=== PATIENT | female | born 1935 | race Caucasian/White ===

== ENCOUNTER 2016-12-18 14:54 | Emergency (ER) | payer MEDICARE, OTHER ==
[~2016-12-18] VITALS: Ht 154.9 cm; Wt 72.6 kg
[2016-12-18] MEDS ORDERED: ASPIRIN CHEWABL81 MG PO (14:59)
[2016-12-18] MEDS ORDERED: TRIAMTERENE-HC1 EACH PO (15:03)
[2016-12-18] MEDS ORDERED: AMLODIPINE BESYL5 MG PO (15:03)
[2016-12-18] MEDS ORDERED: LOSARTAN POTAS100 M1 PO (15:03)
[2016-12-18] MEDS ORDERED: K-TAB10 MEQ PO (15:04)
[2016-12-18] MEDS ORDERED: VITAMIN D31000 UNI1 PO (15:04)
[2016-12-18] MEDS ORDERED: VITAMIN E400 UNI3 PO (15:05)
[2016-12-18] MEDS ORDERED: CALCIUM 500 +1 EAC4 PO (15:06)
[2016-12-18] MEDS ORDERED: NORCO 5-325 TA1 EACH PO (17:13)
== END 2016-12-18 17:25 | disposition home or self-care (01) ==
LOC: ED 14:54
DX: S52.611A Displaced fracture of right ulna styloid process, initial encounter for closed fracture (principal); S52.501A Unspecified fracture of the lower end of right radius, initial encounter for closed fracture; S01.01XA Laceration without foreign body of scalp, initial encounter; S60.211A Contusion of right wrist, initial encounter; Z90.710 Acquired absence of both cervix and uterus; Z79.82 Long term (current) use of aspirin; Z79.899 Other long term (current) drug therapy; W10.8XXA Fall (on) (from) other stairs and steps, initial encounter; Y93.89 Activity, other specified; Y92.89 Other specified places as the place of occurrence of the external cause; Y99.9 Unspecified external cause status

== ENCOUNTER → 2016-12-20 | Outpatient (CLI) | payer MEDICARE, OTHER ==
[~2016-12-20] MED LIST: AMLODIPINE BESYL5 MG PO; ASPIRIN CHEWABL81 MG PO; CALCIUM 500 +1 EAC4 PO; K-TAB10 MEQ PO; LOSARTAN POTAS100 M1 PO; NORCO 5-325 TA1 EACH PO; TRIAMTERENE-HC1 EACH PO; VITAMIN D31000 UNI1 PO; VITAMIN E400 UNI3 PO
== END | disposition home or self-care (01) ==
LOC: ORTHO 03:19
DX: S52.511D Displaced fracture of right radial styloid process, subsequent encounter for closed fracture with routine healing (principal); S52.611D Displaced fracture of right ulna styloid process, subsequent encounter for closed fracture with routine healing; X58.XXXD Exposure to other specified factors, subsequent encounter

== ENCOUNTER → 2017-01-03 | Outpatient (CLI) | payer MEDICARE, OTHER | END | disposition home or self-care (01) | LOC: ORTHO 04:04 | DX: S52.571D Other intraarticular fracture of lower end of right radius, subsequent encounter for closed fracture with routine healing (principal); M19.031 Primary osteoarthritis, right wrist; X58.XXXD Exposure to other specified factors, subsequent encounter ==

== ENCOUNTER → 2017-01-29 | Outpatient (CLI) | payer MEDICARE, BC | END | disposition home or self-care (01) | LOC: ORTHO 00:58 | DX: S52.501D Unspecified fracture of the lower end of right radius, subsequent encounter for closed fracture with routine healing (principal); S52.611D Displaced fracture of right ulna styloid process, subsequent encounter for closed fracture with routine healing; X58.XXXD Exposure to other specified factors, subsequent encounter ==

== ENCOUNTER → 2017-03-13 | Outpatient (CLI) | payer MEDICARE, BC | END | disposition home or self-care (01) | LOC: ORTHO 01:23 | DX: S52.571D Other intraarticular fracture of lower end of right radius, subsequent encounter for closed fracture with routine healing (principal); X58.XXXD Exposure to other specified factors, subsequent encounter ==